=== PATIENT | female | born 1950 | race Caucasian/White ===

== ENCOUNTER 2024-12-04 11:12 | Emergency (ER) | payer MEDICARE, OTHER, SELFPAY ==
[2024-12-04 11:23] VITALS: BP 181/88
[2024-12-04 11:43] VITALS: BMI 31.7
--- NOTE | 2024-12-04 11:47 | ED.GENMED ---
History of Present Illness
General
Chief Complaint: Cardiac Symptoms
Source: patient
Time Seen by Provider: 12/04/24 11:36
History of Present Illness
History of Present Illness:
74-year-old female presents to the emergency room complaint of palpitations. Patient was actually at a cardiology appointment where she was meeting Dr. Burnett for the first time for evaluation of palpitations. While in the midst of the evaluation
she developed rapid heart rate. EKG showed SVT. Patient was sent to the emergency room for management. Patient has been having these episodes intermittently for 5 years. She had a evaluation by a 'online doctor' and was prescribed propranolol to
take on an as-needed basis. Patient did take propranolol today without improvement. She tried Valsalva maneuvers without improvement.
Phy Exam
Physical Exam
Physical Exam:
General: Awake, Alert, Oriented X3. Appears mildly uncomfortable from rapid heart rate. Appears stated age
Vitals: Tachycardic
Head: Atraumatic
Eyes: Pupils equal, EOMI
Throat: Airway intact, no exudates
Neck: Trachea midline
Lungs: Clear and equal b/l
Heart: Regular rate, no murmurs
Abd: Soft, Nontender, No pulsatile mass
Neuro: Nonfocal
Skin: Warm, dry, no rash
Extremities: pulses equal b/l, no edema
Course
Orders/Labs/Results
Orders:
Orders
12/04/24
Electrocardiogram (*1) Stat
Comment: DONE EMR
12/04/24 11:13
Electrocardiogram (*1) Urgent
Reason for Study: Palpitations
EKG- Treatment ONCE
12/04/24 11:26
Adenosine [Adenocard] 18 mg .ROUTE .STK-MED ONE
12/04/24 11:30
Adenosine [Adenocard] 6 mg IV NOW STA
Vital Signs
Initial and Last Documented VS:
Initial Vital Signs
Temp Pulse Resp BP Pulse Ox
97.7 F 144 16 181/88 97
12/04/24 11:23 12/04/24 11:23 12/04/24 11:23 12/04/24 11:23 12/04/24 11:23
Last Documented Vital Signs
Temp Pulse Resp BP Pulse Ox
97.7 F 82 20 159/84 98
12/04/24 11:23 12/04/24 11:45 12/04/24 11:45 12/04/24 12:00 12/04/24 12:00
MDM/Problems Addressed
Differential Diagnosis Includes:
Sinus tachycardia, A-fib, a flutter, SVT
MDM/Problems Addressed:
Patient presents with rapid heart rate. EKG appears consistent with SVT. She was given 6 mg of adenosine which resulted in the return to normal sinus rhythm.
*Pulse Oximetry
SaO2: 97
Oxygen Mode of Delivery: Room air
Patient hypoxic: no
*EKG
Interpreted by ED Provider?: Yes
Interpretation: abnormal
Heart Rate: 139
Rate: tachycardiac
Rhythm: SVT
Zillah: normal axis
Interval: normal interval
QRS Pattern: normal QRS
Ischemia: non-specific ST changes
*Taxation Accountant Interpretation
Rate: tachycardiac
Interpretation: abnormal
Rhythm: SVT
*Critical Care Note
Total Time (30-74mins, 75-104mins- exclusive of procedures): Not Applicable
ED Attending Note
-
Portions of this chart may have been created with voice recognition software.� Occasional wrong word or��sound alike� substitutions may have occurred due to the inherent limitations of voice recognition software.
Discharge Plan
Departure
Patient Disposition: Home (Routine Discharge)
Date of Disposition: 12/04/24
Time of Disposition: 12:09
Patient with high blood pressure during this ER visit?: Yes
Condition: Good
Discharge Problem:
Paroxysmal supraventricular tachycardia
Instructions: Supraventricular tachycardia (SVT), BLOOD PRESSURE
Referrals:
NONE,* [Family Provider, Internal Medicine]
Power De La O, DO [Active, Cardiology]
Interventions
Interventions:
*Risk Screen - Suicide Last Done: 12/04/24 12:40
*General Assessment Last Done: 12/04/24 11:48
*Neglect/Abuse Screening Last Done: 12/04/24 12:40
*ED- Fall Risk Assessment Last Done: 12/04/24 12:40
*ED COVID-19 Vaccine History Last Done: 12/04/24 11:48
*Nursing Disposition Last Done: 12/04/24 12:40
ED- Pulmonary Assessment Last Done: 12/04/24 11:50
ED- Cardiac Assessment Last Done: 12/04/24 11:50
Discharge Date and Time
Discharge Date/Time: 12/04/24 12:51
Print Language: SERBIAN
[2024-12-04] MEDS: ADENOCARD 6 MG IV (11:55)
[2024-12-04 12:00] VITALS: BP 159/84
== END 2024-12-04 12:51 | disposition home or self-care (01) ==
LOC: EMR 11:12
PROVIDERS: EMERGENCY PHYSICIAN Emergency Medicine
DX: I47.19 Other supraventricular tachycardia (principal); R03.0 Elevated blood-pressure reading, without diagnosis of hypertension
CPT/HCPCS: 99284; 96374; 93005; J0153